=== PATIENT | male | born 1955 | race American Indian/Alaskan Native ===

== ENCOUNTER 2019-05-23 17:08 | Emergency (ER) | payer SELFPAY ==
--- NOTE | 2019-05-23 17:15 | Event Note ---
ED Screening Note ED Screening Note: cut himself with hedge trimmers laceration to right three fingers states his tetanus is UTD This initial assessment/diagnostic orders/clinical plan/treatment(s) is/are subject to change based on patients health status, clinical progression and re- assessment by fellow clinical providers in the ED. Further treatment and workup at subsequent clinical providers discretion. Patient/guardian urged not to elope from the ED as their condition may be serious if not clinically assessed and managed. Initial orders include: XR right hand
[2019-05-23 17:29] VITALS: BP 187/106
--- NOTE | 2019-05-23 18:27 | XRay Report ---
RIGHT HAND 3 VIEWS INDICATION / CLINICAL INFORMATION: Right laceration while using tree trimmer. COMPARISON: None available. FINDINGS: BONES and JOINT(S): No acute fracture or subluxation. No significant arthritis. SOFT TISSUES: There are lacerations of the distal portions of the index and middle fingers with assoc iated edema. No radiopaque foreign bodies are seen. ADDITIONAL FINDINGS: None. IMPRESSION: Lacerations of the right index and middle fingers. Signer Name: Tony Leung MD Signed: 05/23/2019 6:23 PM Workstation Name: [id number]
[2019-05-23] MEDS ORDERED: oxyCODONE /ACETAMINOPHEN 5-325MG TAB PO PRN (18:31)
[2019-05-23] MEDS ORDERED: oxyCODONE /ACETAMINOPHEN 5-325MG TAB PO ONE (18:34)
[2019-05-23] MEDS ORDERED: oxyCODONE /ACETAMINOPHEN 5-325MG TAB ONE (18:34)
[2019-05-23] MEDS ORDERED: TETANUS,DIPH,PERTUSS(ACELL) VACCINE 0.5 ML SYRINGE IM ONE (19:31)
[2019-05-23] MEDS ORDERED: LIDOCAINE-MPF (1%) 10 MG/1 ML VIAL 5 ML INFILTRATI ONE (19:31)
--- NOTE | 2019-05-23 19:40 | Emergency Department Report ---
Upper Extremity - HPI Chief Complaint: Extremity Injury, Upper Stated Complaint: CUT 3 FINGERS/RT HAND Time Seen by Provider: 05/23/19 19:20 Upper Extremity: Left Index Finger, Left Middle Finger, Left Ring Finger Occurred When: Today Mechanism: Other (weedwaker ) Symptoms: Yes Pain with Movement, Yes Swelling, Yes Laceration or Abrasion, No Deformity, No Limited Range of Movement, No Numbness, No Weakness, No Bruising/Ecchymosis Other History: pt states he was holding monkey grass while his friend cut with week manuel causing laceration thumb, index, middle, and ring finger right. ED Review of Systems ROS: Stated complaint: CUT 3 FINGERS/RT HAND Other details as noted in HPI Constitutional: denies: chills, fever Eyes: denies: eye pain, eye discharge, vision change ENT: denies: ear pain, throat pain Respiratory: no symptoms reported Cardiovascular: denies: chest pain, palpitations Endocrine: no symptoms reported Gastrointestinal: denies: abdominal pain, nausea, diarrhea Genitourinary: as per HPI Musculoskeletal: denies: back pain, joint swelling, arthralgia Skin: other (skin avulsion and lacerations to right hand 1,2,3,&4th fingers). denies: rash, lesions Neurological: denies: headache, weakness, paresthesias Psychiatric: denies: anxiety, depression Hematological/Lymphatic: denies: easy bleeding, easy bruising ED Past Medical Hx - Past Medical History Previous Medical History?: Yes Hx Hypertension: Yes Hx Psychiatric Treatment: Yes (recovering addict crack cocaine) - Surgical History Past Surgical History?: Yes Additional Surgical History: fx jaw - Social History Smoking Status: Current Some Day Smoker Substance Use Type: Alcohol, Marijuana - Medications Home Medications: Home Medications Medication Instructions Recorded Confirmed Last Taken Type cephALEXin [Keflex] 500 mg PO Q8HR #30 cap 05/23/19 Unknown Rx traMADoL [Ultram] 50 mg PO Q6HR PRN #12 tablet 05/23/19 Unknown Rx Upper Extremity Exam - Exam General: Vital signs noted. No distress. Alert and acting appropriately. Head and Torso: No HEENT Abnormality, No Neck Tenderness, No Chest/Lungs Abnormality, No Abdominal Tenderness, No Back Tenderness Shoulder Exam: Yes Normal Range of Motion in Shoulder, No Shoulder Tenderness, No Clavicle Tenderness, No Shoulder Deformity, No AC Joint Tenderness Arm Exam: No Arm/Humerus Tenderness, No Arm Deformity Elbow: No Elbow Tenderness, No Normal Range of Motion in Elbow, No Elbow Deformity Forearm: No Forearm Tenderness, No Forearm Deformity, No Pain with Pronation, No Pain with Supination Wrist: Yes Normal ROM in Wrist, No Wrist Tenderness, No Wrist Deformity, No Snuffbox Tenderness, No Pain with Axial Thumb Compression Hand: Yes Normal ROM in Digit(s), No Hand Tenderness, No Hand Deformity, No Digit Tenderness, No Digit(s) Deformity, No Tendon Dysfunction CMS Exam: Yes Broken Skin (lacerations and skin avulsions as above ), Yes Normal Distal Pulses, Yes Normal Capillary Refill, Yes Normal Distal Sensation ED Course Vital Signs 05/23/19 17:27 Temperature 98.3 F Pulse Rate 70 Respiratory 18 Rate Blood Pressure 187/106 O2 Sat by Pulse 100 Oximetry - Laceration /Wound Repair Right Distal Finger Wound Location: upper extremity (right hand 1,2,finger tip partial skin avulsion, and laceration to 3 and 4th distal fingers no fracture per xay, no muscle tendon or muscle damage rom intact ,services host <3 sec bilat, distal pulse intact.) Wound Length (cm): 1 Wound's Depth, Shape: superficial Wound Explored: contaminated Irrigated w/ Saline (ccs): 250 Betadine Prep?: Yes Anesthesia: 1% Lidocaine (via digital block ) Volume Anesthetic (ccs): 1 (each) Wound Debrided: minimal Wound Repaired With: sutures (x 7 ) Suture Size/Type: 4:0, proline (7 to lacerations, skin glue) Number of Sutures: 7 Sterile Dressing Applied?: Yes Progress: wounds cleaned with betadine solution, anethesia via digital blocks, wound irrigated with sterile saline, manually explored no foreign body noted , wounds closed with 4.0 proline and dermabond, all bleeding is controlled, rom intact, pt given discharge instructions verbalized agreement and understanding of same. ED Medical Decision Making - Medical Decision Making lacerations repaired see procedure note, all bleeding is controlled , pt given wound care instructions, rom remains intact, pt tolerated procedure with minimal distress. pt will be dc'e with rx for keflex, tetanus given in ed, ultram prn pain. Critical care attestation.: If time is entered above; I have spent that time in minutes in the direct care of this critically ill patient, excluding procedure time. ED Disposition Clinical Impression: Avulsion, skin Laceration of finger Qualifiers: Encounter type: initial encounter Finger: middle finger Damage to nail status: without damage Foreign body presence: without foreign body Laterality: right Qualified Code(s): S61.212A - Laceration without foreign body of right middle finger without damage to nail, initial encounter Disposition: TO HOME OR SELFCARE Is pt being admited?: No Does the pt Need Aspirin: No Condition: Stable Instructions: Suture Care (ED), Absorbable Suture Care (ED) Prescriptions: cephALEXin [Keflex] 500 mg PO Q8HR #30 cap traMADoL [Ultram] 50 mg PO Q6HR PRN #12 tablet PRN Reason: Pain Referrals: [facility] [Outside] - 3-5 Days Forms: Work/School Release Form(ED) Time of Disposition: 20:49
[2019-05-23] MEDS ORDERED: FAMOTIDINE 20 MG TAB PO ONE (20:49)
[2019-05-23] MEDS ORDERED: diphenhydrAMINE 25 MG CAP PO ONE (20:49)
== END 2019-05-23 20:55 | disposition home or self-care (01) ==
LOC: ED 17:08
DX: S61.214A Laceration without foreign body of right ring finger without damage to nail, initial encounter (principal); S61.212A Laceration without foreign body of right middle finger without damage to nail, initial encounter; S61.211A Laceration without foreign body of left index finger without damage to nail, initial encounter; I10 Essential (primary) hypertension; F17.200 Nicotine dependence, unspecified, uncomplicated; F10.10 Alcohol abuse, uncomplicated; F12.10 Cannabis abuse, uncomplicated; Z79.899 Other long term (current) drug therapy; W26.8XXA Contact with other sharp object(s), not elsewhere classified, initial encounter; Y93.89 Activity, other specified; Y92.89 Other specified places as the place of occurrence of the external cause; Y99.8 Other external cause status
CPT/HCPCS: 90471; 90715

== ENCOUNTER 2021-04-25 12:54 | Emergency (ER) | payer MEDICARE, OTHER ==
[2021-04-25 13:25] VITALS: BP 141/83
[2021-04-25] MEDS ORDERED: HYDROcodone/ACETAMINOPHEN 5-325 MG TAB PO ONE (13:54)
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
== END 2021-04-25 15:37 | disposition home or self-care (01) ==
LOC: ED 12:54
DX: S83.8X1A Sprain of other specified parts of right knee, initial encounter (principal); S43.491A Other sprain of right shoulder joint, initial encounter; S70.01XA Contusion of right hip, initial encounter; I10 Essential (primary) hypertension; F17.200 Nicotine dependence, unspecified, uncomplicated; F12.90 Cannabis use, unspecified, uncomplicated; Z72.89 Other problems related to lifestyle; Z88.8 Allergy status to other drugs, medicaments and biological substances; Z79.899 Other long term (current) drug therapy; V87.7XXA Person injured in collision between other specified motor vehicles (traffic), initial encounter; Y93.89 Activity, other specified; Y92.488 Other paved roadways as the place of occurrence of the external cause; Y99.8 Other external cause status
CPT/HCPCS: 99283